=== PATIENT | female | born 1970 | race Caucasian/White ===

== ENCOUNTER 2022-02-28 16:24 | Emergency (ER) | payer BC ==
[~2022-02-28] VITALS: Ht 162.6 cm; Wt 122.5 kg
[2022-02-28 16:32] VITALS: BP_SYST 153
--- NOTE | 2022-02-28 17:38 | NUR ---
BROUGHT BACK TO [facility] BED AND REPORT GIVEN TO BENITO
--- NOTE | 2022-02-28 19:00 | NUR ---
16:46hr DR Murillo Examining the pt in the triage room.
[2022-02-28] MEDS ORDERED: IBUP-1969 PO (19:18)
--- NOTE | 2022-02-28 20:18 | NUR ---
Patient given written and verbal discharge instructions and verbalizes understanding. ER MD discussed with patient the results and treatment provided. Patient in stable condition. ID arm band removed. Rx of Ibuprofen given. Patient educated on pain management and to follow up with PMD. Pain Scale 4/10. Opportunity for questions provided and answered. Medication side effect fact sheet provided.
[2022-02-28 20:21] VITALS: BP_SYST 140
== END 2022-02-28 20:21 | disposition home or self-care (01) ==
LOC: SED 16:24
DX: R60.9 Edema, unspecified (principal); M79.661 Pain in right lower leg; I10 Essential (primary) hypertension; Z79.899 Other long term (current) drug therapy
CPT/HCPCS: 93971; 99284